=== PATIENT | male | born 1985 | race Caucasian/White ===

== ENCOUNTER 2018-09-14 21:03 | Emergency (ER) | payer OTHER, SELFPAY ==
[2018-09-14] MEDS ORDERED: Promethazine 25 MG TAB ONE (21:30)
[2018-09-14] MEDS ORDERED: Ibuprofen 200 MG TAB ONE (21:30)
== END 2018-09-14 21:33 | disposition home or self-care (01) ==
LOC: BURERS 21:03
DX: K80.70 Calculus of gallbladder and bile duct without cholecystitis without obstruction (principal); F31.9 Bipolar disorder, unspecified; F17.210 Nicotine dependence, cigarettes, uncomplicated
CPT/HCPCS: Q0169

== ENCOUNTER 2019-07-15 10:45 | Emergency (ER) | payer OTHER | END 2019-07-15 12:10 | disposition home or self-care (01) | LOC: BURERS 10:45 | DX: J06.9 Acute upper respiratory infection, unspecified (principal); F17.210 Nicotine dependence, cigarettes, uncomplicated | CPT/HCPCS: 99283 ==